=== PATIENT | male | born 1955 | race Caucasian/White ===

== ENCOUNTER 2016-11-18 22:53 | Emergency (ER) | payer OTHER ==
[~2016-11-18] VITALS: Ht 180.3 cm; Wt 141.6 kg
[2016-11-18 22:57] VITALS: TEMP 37; Ht 180.3 cm; Wt 141.6 kg
[2016-11-18] MEDS ORDERED: DiphenhydrAMINE HCL 50 MG/ML VIAL IM STA (23:21)
[2016-11-18] MEDS ORDERED: RANITIDINE HCL 150 MG TAB PO STA (23:21)
--- NOTE | 2016-11-18 23:25 | EMERGENCY ROOM VISIT NOTE ---
History Report prepared by [place]: Alexis Mello Under the Supervision of: Dr. Radha Heller D.O. First contact with patient: 23:02 Chief Complaint: ALLERGIC REACTION Stated Complaint: TONGUE SWELLING History of Present Illness The patient is a 61 year old male diabetic who presents to the Emergency Room with complaints of persistent tongue swelling that started around 1 and a half hours ago. The patient states that he has tongue swelling around the tip on the left side, and it first started as a burning sensation. He notes that there is no tongue pain or soreness however. Per the patient's , the patient has a history over 10 years ago of tongue peeling. The patient states that his hands would first get itchy, and then his tongue would peel and swell, and he would then pass out. Per the patient's , the patient saw his doctor for the symptoms, and it was thought to be infectious. The patient was put on medication , and the swelling went down, but the patient still gets some itchiness occasionally. The patient's tongue would swell a bit occasionally, but he has not had swelling like this since over 10 years ago. He notes that he gets pain intermittently when the tongue peels, and sometimes he cannot eat anything that is acidic or anything that would irritate his tongue. He adds that he normally gets a burning sensation on his tongue before his tongue peels.The patient's adds that the patient is supposed to see an oral surgeon for the tongue peeling. The patient denies any shortness of breath, itchiness, or abdominal pain. The patient takes Metformin, Glipizide, Atorvastatin, Aspirin, and Benazepril daily. He does take an MU inhibitor. He notes that he did not take Benadryl at home. The patient also denies any new foods or medications. Source of History: patient, spouse/significant other Onset: Around 1 and a half hours ago Position: tongue Quality: other (swelling) Timing: other (persistent) Associated Symptoms: No SOB, No abdominal pain Note: Associated symptoms: Initially started as burning sensation on tongue. Denies itchiness or tongue pain. Review of Systems See HPI for pertinent positives & negatives. A total of 10 systems reviewed and were otherwise negative. Past Medical & Surgical Medical Problems: (1) Diabetes (2) Heart disease (3) HTN (hypertension) Family History Diabetes mellitus Heart disease Hypertension Social History Smoking Status: Former Smoker Alcohol Use: none Marital Status: Housing Status: lives with family Occupation Status: retired Current/Historical Medications Scheduled Amlodipine/Benazepril (Lotrel 5MG/20MG), 1 CAP PO DAILY Aspirin (Aspirin Ec), 81 MG PO DAILY Atorvastatin (Lipitor), 40 MG PO DAILY Glipizide (Glucotrol), 5 MG PO BID Metformin Hcl (Glucophage), 850 MG PO TID Omeprazole (Prilosec), 20 MG PO DAILY Allergies Coded Allergies: No Known Allergies (Unverified , 11/18/16) Physical Exam Vital Signs Date Time Temp Pulse Resp B/P (MAP) Pulse Ox O2 Delivery O2 Flow Rate FiO2 11/19/16 00:29 72 18 147/97 95 Room Air 11/18/16 22:57 37.0 79 20 164/110 93 Room Air Physical Exam HEENT: Head - normocephalic and atraumatic. Pupils are equal, round, and reactive to light. Extraocular eye muscles are intact, and sclera are anicteric. Nose - moist nasal mucosa without discharge. Mouth - moist buccal mucosa. On left tip of the tongue, there is an area of peeling skin with surrounding erythema and edema. Oropharynx is nonerythematous and there is no tonsillar exudate or edema noted. Neck: Supple; no JVD, nuchal rigidity, cervical lymphadenopathy. Heart: Regular rate and rhythm. There is a normal S1 and S2 with no murmurs, clicks, or gallops appreciated. Lungs: Clear to auscultation bilaterally with no wheezes, rales, or rhonchi. Abdomen: Soft, completely nontender, nondistended, with good bowel sounds. There are no palpable pulsatile masses or hepatosplenomegaly. There is no guarding, rigidity, or rebound noted. Extremities: No evidence of cyanosis, clubbing, or edema. There are easily palpable peripheral pulses. Skin: warm and dry with good turgor and no rashes. Medical Decision & Procedures Medications Administered Medications (Trade) Dose Ordered Sig/Gregoria Route Start Time Stop Time Status Last Admin Dose Admin Ranitidine HCl (zANTac TAB) 150 mg NOW STAT PO 11/18/16 23:21 11/18/16 23:22 DC 11/18/16 23:32 150 MG Diphenhydramine HCl (Benadryl Inj) 50 mg NOW STAT IM 11/18/16 23:21 11/18/16 23:22 DC 11/18/16 23:32 50 MG Procedure 232: Ordered Benadryl Inj 50 mg IM, Zantac Tab 150 mg PO. ED Course 231: Past medical records reviewed. The patient was evaluated in room B2. A complete history and physical exam was performed. 232: Ordered Benadryl Inj 50 mg IM, Zantac Tab 150 mg PO. 0011: I reevaluated the patient and he is in the bathroom. 0016: I reevaluated the patient and his tongue is less swollen. I told him to stop the MU inhibitor. The patient verbally expressed understanding and agreement of the treatment plan. The patient will be discharged. He will follow -up with Dr. Fuentes with regards to his blood pressure medications. Medical Decision The patient is a 61 year old male who presents to the ED with tongue swelling. Differential diagnosis includes angioedema, allergic reaction, oral infection. The patient presents to the emergency department with some swelling to his tongue. It seems to be localized to the left side of the anterior aspect of the tongue. The patient does take an MU inhibitor and I was somewhat concerned for angioedema. There are no significant signs of infection. I've asked the patient to follow-up with his PCP for redirection for his antihypertensives. In the meantime, he will stop his combination med-amlodipine /Benzapril. He was told to return to the Er for any worsening symptoms Medication Reconcilliation Current Medication List: was personally reviewed by me Blood Pressure Screening Patient's blood pressure: Elevated blood pressure Blood pressure disposition: Elevated BP felt to be situational Impression Primary Impression: Angio-edema Scribe Attestation The scribe's documentation has been prepared under my direction and personally reviewed by me in its entirety. I confirm that the note above accurately reflects all work, treatment, procedures, and medical decision making performed by me. Departure Information Dispostion Home / Self-Care Referrals Anirudh Fuentes D.O. (PCP) Forms HOME CARE DOCUMENTATION FORM, IMPORTANT VISIT INFORMATION, WORK / SCHOOL INSTRUCTIONS Patient Instructions ED Angioedema, My [facility] Additional Instructions Rest with your head elevated. Stop the BP med - amlodipine/benzapril. Talk to Dr. Fuentes about alternative Problem Qualifiers Primary Impression: Angio-edema Encounter type: initial encounter Qualified Codes: T78.3XXA - Angioneurotic edema, initial encounter
[2016-11-18] MEDS ORDERED: METF-383 PO (23:41)
[2016-11-18] MEDS ORDERED: GLIP5TAB11 PO (23:41)
[2016-11-18] MEDS ORDERED: ATOR-24 PO (23:41)
[2016-11-18] MEDS ORDERED: PRLSR20 PO (23:41)
[2016-11-18] MEDS ORDERED: ASPI81TA28 PO (23:41)
[2016-11-18] MEDS ORDERED: AMLO5CAP2 PO (23:41)
[2016-11-19 00:29] VITALS: BP 147/97; PULSE 72; O2SAT 95
[2016-11-26] MEDS ORDERED: NRV5 PO (13:42)
[2016-11-26] MEDS ORDERED: CRG3125 PO (13:42)
== END 2016-11-19 00:33 | disposition home or self-care (01) ==
LOC: C.EDB 22:57
DX: T78.3XXA Angioneurotic edema, initial encounter (principal); X58.XXXA Exposure to other specified factors, initial encounter; I10 Essential (primary) hypertension; E11.9 Type 2 diabetes mellitus without complications; I51.9 Heart disease, unspecified; Z87.891 Personal history of nicotine dependence; Z79.82 Long term (current) use of aspirin; Z79.84 Long term (current) use of oral hypoglycemic drugs; Z79.899 Other long term (current) drug therapy; Z83.3 Family history of diabetes mellitus; Z82.49 Family history of ischemic heart disease and other diseases of the circulatory system

== ENCOUNTER 2016-11-25 04:17 | Observation (INO) | payer OTHER ==
[2016-11-25] VITALS (7 sets, daily range): BP systolic 139–194; BP diastolic 80–126; PULSE 72–102; TEMP 36.6–36.9; O2SAT 92–94; BMI 43.4
[~2016-11-25] VITALS: Ht 180.3 cm; Wt 136.4 kg
[~2016-11-25 04:17] MED LIST: AMLO5CAP2 PO; ASPI81TA28 PO; ATOR-24 PO; GLIP5TAB11 PO; METF-383 PO; PRLSR20 PO
[2016-11-25 05:08] LABS: BASO % 0.7 %; BASO ABS # 0.05 K/uL (0-0.2); COMPLETE YES; EOS % 7.3 %; HEMATOCRIT 44.3 % (42-52); IG% 0.4 %; LYMPH % 28.9 %; LYMPH ABS # 2.18 K/uL (1.2-3.4); MEAN CELL VOLUME 89.9 fL (80-100); MEAN CORPUSCULAR HEMOGLOBIN 28.2 pg (25-34); MEAN CORPUSCULAR HGB CONC 31.4 g/dl (32-36); MEAN PLATELET VOLUME 9.6 fL (7.4-10.4); MONO % 9.8 %; NEUT % 52.9 %; PLATELET COUNT 288 K/uL (130-400); RED BLOOD COUNT 4.93 M/uL (4.7-6.1); WHITE BLOOD COUNT 7.55 K/uL (4.8-10.8)
[2016-11-25 05:28] LABS: ALT/SGPT 57 U/L (12-78); AST/SGOT 27 U/L (15-37); BLOOD UREA NITROGEN 20 mg/dl (7-18); BUN/CREATININE RATIO 17.8 (10-20); CALCIUM 8.8 mg/dl (8.5-10.1); CARBON DIOXIDE 29 mmol/L (21-32); CHLORIDE 105 mmol/L (98-107); GLUCOSE 136 mg/dl (70-99); POTASSIUM 4.1 mmol/L (3.5-5.1); SODIUM 140 mmol/L (136-145)
[2016-11-25] MEDS ORDERED: NITROGLYCERIN 0.4 MG SL PER TAB CHARGE SL STA (05:29)
[2016-11-25] MEDS ORDERED: ASPIRIN 81 MG CHEW PO STA (05:29)
[2016-11-25 05:33] LABS: ALKALINE PHOSPHATASE 67 U/L (45-117)
[2016-11-25] MEDS ORDERED: LOSA1TAB PO (06:02)
--- NOTE | 2016-11-25 06:37 | DIAGNOSTIC IMAGING REPORT ---
CHEST ONE VIEW PORTABLE CLINICAL HISTORY: CHEST PAIN dyspnea COMPARISON STUDY: No previous studies for comparison. FINDINGS: The bones soft tissues and hemidiaphragms are normal. The cardiomediastinal silhouette is normal. The lungs are clear. The pulmonary vasculature is normal. IMPRESSION: Negative chest. The above report was generated using voice recognition software. It may contain grammatical, syntax or spelling errors. Electronically signed by: Marcin Rodriguez M.D. 11/25/2016 6:36 AM Dictated Date/Time: 11/25/2016 6:35 AM
--- NOTE | 2016-11-25 06:44 | EMERGENCY ROOM VISIT NOTE ---
ED Visit Note First contact with patient: 04:34 I saw this patient in conjunction with Destiny Slaughter PA-C. I agree with her decision making and treatment plan.
--- NOTE | 2016-11-25 06:46 | EMERGENCY ROOM VISIT NOTE ---
History First contact with patient: 04:34 Chief Complaint: CARDIAC ASSESSMENT Stated Complaint: HIGH BLOOD PRESSURE,CHEST TIGHTNESS,SOB Nursing Triage Summary: Chest tightness and SOB that began at 0300. Patient denies nausea, vomiting or other symptoms at this time. Patient checked BP at home and it was elevated, recently changed BP medication to Cozaar. History of Present Illness The patient is a 61 year old male who presents to the Emergency Room with complaints of chest tightness, shortness of breath and high blood pressure for the past several hours. Patient states he woke up at 3 AM with chest tightness. His blood pressures been high. He was replaced was blood pressure meds secondary to angioedema. He's had 7 stents placed. He follows with Dr. Murray. He describes chest pain as tightness, ranging in severity 3 out of 10. Nothing makes it better or worse. He states his headache stress test and echo recently that he thinks is normal. Last stent was placed in 2002. Patient denies recent travel, leg pain or swelling, abdominal pain, nausea, vomiting, diarrhea, diaphoresis, radiating pain. Review of Systems See HPI for pertinent positives & negatives. A total of 10 systems reviewed and were otherwise negative. Past Medical/Surgical History Medical Problems: (1) Diabetes (2) Heart disease (3) HTN (hypertension) Family History Diabetes mellitus Heart disease Hypertension Social History Smoking Status: Never Smoker Alcohol Use: none Marital Status: Housing Status: lives with family Occupation Status: retired Current/Historical Medications Scheduled Aspirin (Aspirin Ec), 81 MG PO DAILY Atorvastatin (Lipitor), 40 MG PO DAILY Glipizide (Glucotrol), 5 MG PO BID Losartan Potassium (Cozaar), 25 MG PO DAILY Metformin Hcl (Glucophage), 850 MG PO TID Omeprazole (Prilosec), 20 MG PO DAILY Physical Exam Vital Signs Date Time Temp Pulse Resp B/P (MAP) Pulse Ox O2 Delivery O2 Flow Rate FiO2 11/25/16 06:00 92 21 176/116 93 Room Air 11/25/16 05:13 68 11/25/16 04:51 94 Room Air 11/25/16 04:47 94 Room Air 11/25/16 04:24 36.8 74 20 186/109 93 Room Air Physical Exam VITALS: Vitals are noted on the nurse's note and reviewed by myself. Vital signs hypertensive GENERAL: Pleasant male, in no acute distress, nondiaphoretic, well-developed well-nourished. SKIN: The skin was without rashes, erythema, edema, or bruising. There is no tenting of the skin. Capillary reflex less than 2 seconds. HEAD: Normocephalic atraumatic. EARS: External auditory canals clear, tympanic membranes pearly bradley without erythema or effusion bilaterally. EYES: Pupils equal round and reactive to light and accommodation. Conjunctivae without injection, sclerae without icterus. Extraocular movements intact. NOSE: Patent, turbinates without inflammation or discharge. MOUTH: Mucous membranes moist. . Pharynx without erythema or exudate. Uvula midline. Airway patent. Tongue does not deviate. NECK: Supple without nuchal rigidity. No lymphadenopathy. No thyromegaly. Cervical spine is nontender. No JVD. HEART: Regular rate and rhythm chest nontender to palpation LUNGS: Clear to auscultation bilaterally without wheezes, rales or rhonchi. No dullness to percussion. No retractions or accessory muscle use. ABDOMEN: Positive bowel sounds x 4. Normal tympanic percussion. Soft, nontender, without masses or organomegaly. Poe sign negative. No guarding or rebound tenderness. MUSCULOSKELETAL: No muscle atrophy, erythema, or edema noted. NEURO: Patient was alert and oriented to person place and time. Normal sensation to light and sharp touch. No focal neurological deficits. Medical Decision & Procedures Laboratory Results 11/25/16 04:43 Red Blood Count 4.93, Mean Corpuscular Volume 89.9, Mean Corpuscular Hemoglobin 28.2, Mean Corpuscular Hemoglobin Concent 31.4, Mean Platelet Volume 9.6, Neutrophils (%) (Auto) 52.9, Lymphocytes (%) (Auto) 28.9, Monocytes (%) (Auto) 9.8, Eosinophils (%) (Auto) 7.3, Basophils (%) (Auto) 0.7, Neutrophils # (Auto) 4.00, Lymphocytes # (Auto) 2.18, Monocytes # (Auto) 0.74, Eosinophils # (Auto) 0.55, Basophils # (Auto) 0.05 11/25/16 04:43 Test 11/25/16 04:43 White Blood Count 7.55 K/uL (4.8-10.8) Red Blood Count 4.93 M/uL (4.7-6.1) Hemoglobin 13.9 g/dL (14.0-18.0) Hematocrit 44.3 % (42-52) Mean Corpuscular Volume 89.9 fL (80-100) Mean Corpuscular Hemoglobin 28.2 pg (25-34) Mean Corpuscular Hemoglobin Concent 31.4 g/dl (32-36) Platelet Count 288 K/uL (130-400) Mean Platelet Volume 9.6 fL (7.4-10.4) Neutrophils (%) (Auto) 52.9 % Lymphocytes (%) (Auto) 28.9 % Monocytes (%) (Auto) 9.8 % Eosinophils (%) (Auto) 7.3 % Basophils (%) (Auto) 0.7 % Neutrophils # (Auto) 4.00 K/uL (1.4-6.5) Lymphocytes # (Auto) 2.18 K/uL (1.2-3.4) Monocytes # (Auto) 0.74 K/uL (0.11-0.59) Eosinophils # (Auto) 0.55 K/uL (0-0.5) Basophils # (Auto) 0.05 K/uL (0-0.2) RDW Standard Deviation 45.4 fL (36.4-46.3) RDW Coefficient of Variation 13.9 % (11.5-14.5) Immature Granulocyte % (Auto) 0.4 % Immature Granulocyte # (Auto) 0.03 K/uL (0.00-0.02) D-Dimer 400 ug/L FEU (0-500) Anion Gap 6.0 mmol/L (3-11) Est Creatinine Clear Calc Drug Dose 102.6 ml/min Estimated GFR () 84.1 Estimated GFR (Non- 72.6 BUN/Creatinine Ratio 17.8 (10-20) Calcium Level 8.8 mg/dl (8.5-10.1) Total Bilirubin 0.3 mg/dl (0.2-1) Direct Bilirubin < 0.1 mg/dl (0-0.2) Aspartate Amino Transf (AST/SGOT) 27 U/L (15-37) Alanine Aminotransferase (ALT/SGPT) 57 U/L (12-78) Alkaline Phosphatase 67 U/L (45-117) Troponin I < 0.015 ng/ml (0-0.045) Pro-B-Type Natriuretic Peptide 32 pg/ml (0-900) Total Protein 7.5 gm/dl (6.4-8.2) Albumin 3.5 gm/dl (3.4-5.0) Lipase 99 U/L (73-393) Medications Administered Medications (Trade) Dose Ordered Sig/Gregoria Route Start Time Stop Time Status Last Admin Dose Admin Aspirin (Aspirin Chew) 324 mg NOW STAT PO 11/25/16 05:29 11/25/16 05:32 DC 11/25/16 05:29 324 MG ED Course Prior records/ancillary studies reviewed. Triage Nursing notes reviewed. Additional history obtained from family. The patient's history was concerning for chest pain, dyspnea and high blood pressure. Differential diagnosis: Etiologies such as cardiac ischemia, aortic dissection, pulmonary embolism, pneumonia, pneumothorax, musculoskeletal, infections, pericarditis, myocarditis , esophageal rupture, gastrointestinal, as well as others were entertained. Physical examination: As above. ER treatment provided: Patient was observed On reassessment the patient felt better. Diagnostic interpretation by me: The electrocardiogram was negative for pathologic change. Normal sinus, normal intervals, no acute ST-T wave changes, rate of 71. Impression normal sinus rhythm interpreted by myself The labs revealed negative troponin, repeat troponin will be at 9 AM Stable H&H, hyperglycemia without DKA Imaging studies: Chest x-ray with no acute consolidation, pneumothorax or free air per my interpretation Exam and history seem consistent with chest pain with multiple risk factors. Patient adamantly refuses admission. He understands the risks involved such as heart attack or further heart damage. 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 Patient at least was agreeable to repeat troponin. Patient had a normal EKG. patient had Elevated blood pressure. By the evaluation outlined above emergent etiologies such as aortic dissection, pulmonary embolism, pneumonia, pneumothorax, infections, pericarditis, myocarditis, gastrointestinal, as well as others were deemed relatively unlikely. The pt informed about the findings as listed above. All questions were answered and pleased with the treatment. Case reviewed with my attending Case is signed out to Braxton Koehler PA-C pending repeat troponin and reevaluation in stable condition. Medical Decision As above Blood Pressure Screening Patient's blood pressure: Elevated blood pressure Impression Primary Impression: Precordial chest pain Additional Impression: Dyspnea Departure Information Dispostion Home / Self-Care Condition FAIR Referrals Anirudh Fuentes D.O. (PCP) Patient Instructions [facility] Problem Qualifiers
--- NOTE | 2016-11-25 06:50 | EMERGENCY ROOM VISIT NOTE ---
ED Visit Note First contact with patient: 07:13 Patient case signed out to me by Destiny Slaughter PA-C at time of change pending an 0900 repeat troponin. Please refer to history from previous note. Essentially, the patient was at home when he developed around 3am and some chest discomfort. He was found to be hypertensive. Troponin was performed, and 6 hour repeat was to be done at 9 AM. Initially he was declining admission, however after talking with him about his persistent high blood pressure, he agreed to stay. I discussed this with my attending physician, as well as cardiology, Dr. Gomez. He recommended IV medications of which were provided the patient to include hydralazine 10 mg, as well as 5 mg of amlodipine by mouth. The patient also took his losartan chcf through his stay.. The repeat was negative. I did consult [facility] admission team for further evaluation and management. Please refer to further documentation regarding the patient's stay.
[2016-11-25] MEDS ORDERED: AMLODIPINE BESYLATE 5 MG TAB PO STA (10:15)
[2016-11-25] MEDS ORDERED: HydrALAZINE HCL 20 MG/ML VIAL IV. STA (10:15)
[2016-11-25] MEDS ORDERED: DEXTROSE 50% 50 ML SYR IV PRN (11:45)
[2016-11-25] MEDS ORDERED: GLUCOSE 10 TABS/TUBE PO PRN (11:45)
[2016-11-25] MEDS ORDERED: ACETAMINOPHEN 325 MG TAB PO PRN (11:45)
[2016-11-25] MEDS ORDERED: GLUCAGON FOR INJ 1 MG VIAL SQ PRN (11:45)
[2016-11-25] MEDS ORDERED: ONDANSETRON INJ 2 MG/ML 2 ML VIAL IV PRN (11:45)
[2016-11-25] MEDS ORDERED: GLUCOSE 40% GEL 15 GM TUBE PO PRN (11:45)
[2016-11-25] MEDS ORDERED: NITROGLYCERIN 0.4 MG SL PER TAB CHARGE SL PRN (11:45)
[2016-11-25] MEDS ORDERED: NITROGLYCERIN OINT 2% 1GM PACKET EXT PRN (12:30)
[2016-11-25] MEDS ORDERED: IV FLUIDS COMPLETED PRN (12:30)
--- NOTE | 2016-11-25 13:12 | History and Physical ---
History & Physical Date & Time of Service: Nov 25, 2016 at 12:20 Chief Complaint: High Blood Pressure,Chest Tightness,Sob Primary Care Physician: Anirudh Fuentes D.O. History of Present Illness This is a 61yo male with a PMH of HTN, CAD (s/p multiple stents), DM II, HLD who presents with chest tightness and elevated BP since early this morning. Patient went to bed in his normal state of health and woke up at 3am feeling anxious with associated chest tightness by his sternal notch. No radiation down arms or to jaw. No alleviating or exacerbating factors. Took his BP at home and noticed it was elevated. Chest tightness continued until 4am when he made the decision to come to the ER. Was seen in the ER last week for angioedema, at which point patient's lisinopril was stopped. Has a significant history of CAD, having had 7 stents placed in the past. The last stent placed was in 2002. Denies experiencing any significant episodes of CP since then. Stress echo in August 2016 was negative for inducible ischemia. Follows with LAUREN Murray. Of note, has been under an increased amount of stress lately due to caring for a sick family member. Currently denies any headache, lightheadedness, visual changes, CP, SOB, nausea, vomiting, abd pain, calf pain or LE swelling. Past Medical/Surgical History Medical Problems: (1) Diabetes mellitus, type II Status: Chronic (2) Fatty infiltration of liver Status: Chronic (3) GERD (gastroesophageal reflux disease) Status: Chronic (4) Heart disease Status: Resolved (5) HLD (hyperlipidemia) Status: Chronic (6) HTN (hypertension) Status: Chronic (7) Obesity, morbid, BMI 40.0-49.9 Status: Chronic Social History Problems: (1) Diabetes Status: Chronic Family History Diabetes mellitus Heart disease Hypertension Social History Smoking Status: Former Smoker Alcohol Use: occasionally Marital Status: Occupational Status: retired Allergies Coded Allergies: No Known Allergies (Unverified , 11/18/16) Home Medications Scheduled Aspirin (Aspirin Ec), 81 MG PO DAILY Atorvastatin (Lipitor), 40 MG PO DAILY Glipizide (Glucotrol), 5 MG PO BID Losartan Potassium (Cozaar), 25 MG PO DAILY Metformin Hcl (Glucophage), 850 MG PO TID Omeprazole (Prilosec), 20 MG PO DAILY Review of Systems Ten systems reviewed and negative except as noted in the HPI. Physical Exam Vital Signs Date Time Temp Pulse Resp B/P (MAP) Pulse Ox O2 Delivery O2 Flow Rate FiO2 11/25/16 12:13 36.9 97 18 161/132 94 Room Air 11/25/16 11:55 94 Room Air 11/25/16 11:02 90 18 190/140 94 Room Air 11/25/16 10:36 76 162/112 11/25/16 10:14 85 20 202/125 11/25/16 09:30 76 11/25/16 09:25 86 182/125 93 Room Air 11/25/16 07:32 80 20 168/127 94 Room Air 11/25/16 06:00 92 21 176/116 93 Room Air 11/25/16 05:13 68 11/25/16 04:51 94 Room Air 11/25/16 04:47 94 Room Air 11/25/16 04:24 36.8 74 20 186/109 93 Room Air General Appearance: + mild distress, + obese Head: normocephalic Eyes: normal inspection, PERRL, sclerae normal ENT: hearing grossly normal Neck: supple, no adenopathy, thyroid normal, no JVD, trachea midline Respiratory/Chest: chest non-tender, lungs clear, normal breath sounds, no respiratory distress, no accessory muscle use Cardiovascular: regular rate, rhythm, no murmur, normal peripheral pulses Abdomen/GI: normal bowel sounds, non tender, soft (protuberant ), no organomegaly Back: normal inspection Extremities/Musculoskelatal: normal inspection, no calf tenderness, normal capillary refill, + swelling (1+ pitting edema bilaterally to knee), + pertinent finding (Presence of a healing 2cm wound on R anterior munguia ) Neurologic/Psych: no motor/sensory deficits, alert, normal mood/affect, oriented x 3 Skin: normal color, warm/dry, no rash Diagnostics Laboratory Results Results Past 24 Hours Test 11/25/16 04:43 11/25/16 09:22 11/25/16 11:50 Range/Units White Blood Count 7.55 4.8-10.8 K/uL Red Blood Count 4.93 4.7-6.1 M/uL Hemoglobin 13.9 14.0-18.0 g/dL Hematocrit 44.3 42-52 % Mean Corpuscular Volume 89.9 80-100 fL Mean Corpuscular Hemoglobin 28.2 25-34 pg Mean Corpuscular Hemoglobin Concent 31.4 32-36 g/dl Platelet Count 288 130-400 K/uL Mean Platelet Volume 9.6 7.4-10.4 fL Neutrophils (%) (Auto) 52.9 % Lymphocytes (%) (Auto) 28.9 % Monocytes (%) (Auto) 9.8 % Eosinophils (%) (Auto) 7.3 % Basophils (%) (Auto) 0.7 % Neutrophils # (Auto) 4.00 1.4-6.5 K/uL Lymphocytes # (Auto) 2.18 1.2-3.4 K/uL Monocytes # (Auto) 0.74 0.11-0.59 K/uL Eosinophils # (Auto) 0.55 0-0.5 K/uL Basophils # (Auto) 0.05 0-0.2 K/uL RDW Standard Deviation 45.4 36.4-46.3 fL RDW Coefficient of Variation 13.9 11.5-14.5 % Immature Granulocyte % (Auto) 0.4 % Immature Granulocyte # (Auto) 0.03 0.00-0.02 K/uL D-Dimer 400 0-500 ug/L FEU Sodium Level 140 136-145 mmol/L Potassium Level 4.1 3.5-5.1 mmol/L Chloride Level 105 98-107 mmol/L Carbon Dioxide Level 29 21-32 mmol/L Anion Gap 6.0 3-11 mmol/L Blood Urea Nitrogen 20 7-18 mg/dl Creatinine 1.10 0.60-1.40 mg/dl Est Creatinine Clear Calc Drug Dose 102.6 ml/min Estimated GFR () 84.1 Estimated GFR (Non- 72.6 BUN/Creatinine Ratio 17.8 10-20 Random Glucose 136 70-99 mg/dl Calcium Level 8.8 8.5-10.1 mg/dl Total Bilirubin 0.3 0.2-1 mg/dl Direct Bilirubin < 0.1 0-0.2 mg/dl Aspartate Amino Transf (AST/SGOT) 27 15-37 U/L Alanine Aminotransferase (ALT/SGPT) 57 12-78 U/L Alkaline Phosphatase 67 45-117 U/L Troponin I < 0.015 0-0.045 ng/ml Pro-B-Type Natriuretic Peptide 32 0-900 pg/ml Total Protein 7.5 6.4-8.2 gm/dl Albumin 3.5 3.4-5.0 gm/dl Lipase 99 73-393 U/L Bedside Troponin I < 0.030 0-0.045 ng/ml Creatine Kinase MB Ratio 0-3.0 CXR normal Normal EKG Impression Assessment and Plan This is a 61yo male with a PMH of HTN, CAD (s/p multiple stents), DM II, HLD who presents with chest tightness and elevated BP since early this morning. Hypertensive urgency: improving -likely secondary to Anxiety -BP elevated to 202/125 while in ER -No evidence of end organ damage -Given hydralazine, amlodipine but still elevated to SBP of 190 -Added 0.5" nitro paste Q6H PRN for SBP >160 -Monitor on tele Chest pressure: -Denies alma CP, endorses pressure -R/o ACS; risk factors include DM II, HTN, HLD, obesity -Anxiety also a likely contributor -Given aspirin in ER -Initial troponin negative ,will cycle Lopez -EKG and CXR normal -Recent stress echo in August 2016 without inducible ischemia -LV EF of 55-59% DM II: -Hgb a1c of 7.1 on 07/21 -Hgb a1c ordered -Hold home meds -SSI while in-patient -BG checks AC HS CAD (s/p multiple stents): -Denies alma chest pain, endorses pressure -S/p 7 stents. Last cardiac cath in 2002 -Continue statin, baby aspirin -Cardiology HLD: -Continue statin DVT Ppx: Lovenox Code status: FULL PCP: Alfredo Dispo: Plan to return home once medically stable Attending Addendum:: The patient was seen and examined in ER Admitted with ,anxiety,chest pressure and very high Blood pressure Denies any chest pain during my exam O/E Hemodynamically stable Chest-clear Heart-regular Abdomen-benign Extremities-negative Labs and Imaging studies were reviewed Agree with the Assessment and plan DR Marion Narayan Level of Care Telemetry Advanced Directives Existing Living Will: No Existing Power of Food General Manager: No Resuscitation Status FULL RESUSCITATION VTE Prophylaxis VTE Risk Assessment Done? Y/N: Yes Risk Level: Moderate Given or contraindicated: Enoxaparin (Lovenox)SQ Social Service Consult None Apply
[2016-11-25] MEDS ORDERED: INFLUENZA ADMINISTRATION CHARGE ONE (14:00)
[2016-11-25] MEDS ORDERED: INFLUENZA VIRUS QUAD VACCINE 0.5 ML SYR IM. ONE (14:00)
[2016-11-25 14:20] LABS: HEMATOCRIT 45.4 % (42-52); MEAN CORPUSCULAR HEMOGLOBIN 29.4 pg (25-34); MEAN PLATELET VOLUME 9.7 fL (7.4-10.4); PLATELET COUNT 319 K/uL (130-400); WHITE BLOOD COUNT 7.98 K/uL (4.8-10.8)
[2016-11-25 14:41] LABS: PROTHROMBIN TIME (PATIENT) 10.4 SECONDS (9.0-12.0)
[2016-11-25 14:49] LABS: CKMB/CK RATIO 1.2 (0-3.0)
[2016-11-25] MEDS ORDERED: AMLODIPINE BESYLATE 5 MG TAB PO ONE (16:00)
[2016-11-25] MEDS ORDERED: HydrALAZINE HCL 20 MG/ML VIAL IV. PRN (16:00)
[2016-11-25] MEDS: INSULIN ASPART 100 UNITS/ML 3 ML PEN SC SCH ×2 (17:23→21:09)
--- NOTE | 2016-11-25 17:48 | Cardiology Consultation ---
Cardiology Consultation Date of Consultation: Nov 25, 2016 History of Present Illness Gonzalo Soni is a 61 year old male seen in cardiology consultation per the request of Lorrie Yan PA-C and Dr Narayan for the evaluation of elevated blood pressure and chest discomfort. The patient's primary care provider is Dr. Anirudh Fuentes. The patient follows with Marcin Murray for cardiology practice with most recent outpatient cardiology clinic visit in April 2016. The patient has a long-standing history of hypertension that is been well- controlled on Lotrel (amlodipine 5 mg/benazepril 20 mg) daily. At that time his cardiology visit in April 2016 his blood pressure was recorded as being 126/84 and his heart rate was recorded as being 68 bpm. In the past, the addition of Toprol had been recommended a cardiology visit, but the patient declined stating that he felt well during looking back at his long-standing blood pressure trends as an outpatient, he has had well-controlled blood pressures. A week ago however he had developed swelling of his tongue. He was seen in the emergency department, and was felt that he was having an angioedema reaction to the benazepril. His Lotrel was therefore discontinued and he followed up with his primary care provider and was transitioned to losartan 25 mg daily. He started this medication earlier this week. Last evening however he woke up at 3 AM and he felt anxious feeling. He took his blood pressure on his home blood pressure machine and it was elevated although he does not remember the readings. He then felt mild chest heaviness. Things did not improve so therefore he presented to the emergency department His initial blood pressure performed at 11/25/16 at 4:24 AM was 196/109. Thus far he has received amlodipine 5 mg, hydralazine 10 mg IV 1, topical nitroglycerin and his blood pressure remains elevated, with recent reading at 2: 31 PM of 176/110, and his blood pressure was then repeated at the time of my exam of him at just after 5:15 PM and it was still elevated at 196 /100 millimeters Hg. The patient is feeling improved, with no chest discomfort. He has a vague headache, but he is not certain if that is due to his blood pressure were due to the topical nitroglycerin. He is accompanied by his spouse the bedside. Troponin has been negative 3 at 4:43 AM, 9:22 AM, and 1354. EKG performed on 11/25/16 at 4:34 AM revealed sinus rhythm at 71 bpm with no significant ST changes. A single EKG in his chart at present. Past Medical/Surgical History Problem List: Medical Problems: (1) Diabetes mellitus, type II (2) Fatty infiltration of liver (3) GERD (gastroesophageal reflux disease) (4) Heart disease (5) HLD (hyperlipidemia) (6) HTN (hypertension) (7) Obesity, morbid, BMI 40.0-49.9 Social History Problems: (1) Diabetes History Past Medical History: 1. Coronary heart disease, this was initially diagnosed in 2002 at which time he had exertional chest pain with abnormal stress testing. Cardiac catheterization on 04/27/2002 revealed a high-grade stenosis of the proximal LAD and proximal left circumflex treated with bare-metal stent. He had stenting of the second diagonal branch on 05/02/2002, and PCI of the right coronary artery in [place] in March 2009. The time his 2010 cardiac catheterization [place] he had patent LAD and circumflex stents. 2. Hypertension 3. Type 2 diabetes mellitus 4. 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 Obesity 6. Dyslipidemia 7. Fatty liver infiltration Past Surgical History: Cardiac catheterizations as noted above Social History: Prior smoking having quit in 1985 having smoked one pack per day for 20 years. He is a retired greenhouse laborer. He is , and his spouse accompanies him at the bedside Family History: He states his mother passed with age 55 of a myocardial infarction. Father in his 50s of myocardial infarction. He has a sister with coronary heart disease, heart stents, and a stroke. His a brother with history of coronary artery bypass grafting Review Of Systems See above for pertinent positives & negatives. A total of 10 systems reviewed and were otherwise negative. Allergies Coded Allergies: No Known Allergies (Unverified , 11/18/16) Medications Reported Home Medications Medications Dose Route/Sig Max Daily Dose Days Date Category Cozaar (Losartan Potassium) 25 Mg Tab 25 Mg PO DAILY 11/25/16 Reported Glucotrol (Glipizide) 5 Mg Tab 5 Mg PO BID 11/18/16 Reported Lipitor (Atorvastatin Calcium) 40 Mg Tab 40 Mg PO DAILY 11/18/16 Reported Prilosec (Omeprazole) 20 Mg Capcr 20 Mg PO DAILY 11/18/16 Reported Glucophage (Metformin Hcl) 850 Mg Tab 850 Mg PO TID 11/18/16 Reported Aspirin Ec (Aspirin) 81 Mg Tab 81 Mg PO DAILY 11/18/16 Reported Physical Exam Vital Signs (Last 8hrs): Last 8 Hrs Date Time Temp Pulse Resp B/P (MAP) Pulse Ox O2 Delivery O2 Flow Rate FiO2 11/25/16 17:24 102 164/116 (132) 194/126 (148) 11/25/16 16:00 Room Air 11/25/16 14:31 36.7 97 20 176/110 (132) 92 Room Air 167/108 (127) 11/25/16 12:38 36.6 99 20 180/125 (143) 93 Room Air 11/25/16 12:13 36.9 97 18 161/132 94 Room Air 11/25/16 12:00 Room Air 11/25/16 11:55 94 Room Air 11/25/16 11:02 90 18 190/140 94 Room Air 11/25/16 10:36 76 162/112 11/25/16 10:14 85 20 202/125 General Appearance: Alert and Oriented x3. NAD. Head: Normocephalic Atraumatic. Eyes: PERRLA, EOMI, conjunctiva and sclera clear Neck: Supple. No carotid bruits noted. No JVD. No HJD. Respiratory: Breath sounds clear to auscultation bilaterally. No w/r/r. Cardiovascular: Reg rate and rhythm. S1 and S2 noted. No murmurs, rubs, gallops. PMI non displace. Abdomen: Normal bowel sounds, soft nontender. no abdominal bruits. Extremities: No edema, no clubbing or cyanosis. distal pulses 2/4 bilaterally. Neuro: No focal deficits. Psychiatric: Normal affect. Data Last Resulted 11/25/16 13:54 Last Resulted 11/25/16 04:43 Past 24 Hours Test 11/25/16 04:43 11/25/16 13:54 11/25/16 17:52 Range/Units Troponin I < 0.015 < 0.015 0-0.045 ng/ml Creatine Kinase MB 1.5 0.5-3.6 ng/ml Creatine Kinase MB Ratio 1.2 0-3.0 Prothromb Time International Ratio 1.0 0.9-1.1 Prothrombin Time 10.4 9.0-12.0 SECONDS Total Creatine Kinase 127 39-308 U/L EKG as outlined above. Telemetry reveals stable sinus rhythm and sinus tachycardia is noted with when he walks in the room. Assessment & Plan Impression: 61-year-old male 1. Hypertensive urgency with associated chest discomfort 2. History of coronary stents in the LAD, circumflex, and RCA territories most recently to the RCA in 2009 in [place] 3. Nonischemic debridement stress echocardiogram August, with ejection fraction of 55-59% at that time, trace tricuspid regurgitation, normal calculated pulmonary artery systolic pressure Discussion/recommendations: Per review of his outpatient chart, the patient has had well-controlled blood pressure for years on Lotrel 07/24. He recently was evaluated for an episode suggesting angioedema a week ago and has been off the Lotrel. This was replaced with losartan, and he had just started taking this medication. He now presents with symptoms of hypertension and elevated blood pressures. His blood pressures have remained elevated despite the medications as noted above. I have requested a dose of IV labetalol, 20 mg, and plan to also start him on carvedilol, 3.125 mg 1 now, with next dose tomorrow morning along with amlodipine. His baseline heart rate is in the 60-70 beat per minute range, so I favor carvedilol as a beta shyam for him because it has more of a blood pressure affect and a heart rate affect, given his history of CAD, beta hsyam is warranted. I've requested a repeat resting echocardiogram to be performed tomorrow. Given concerns of potential for angioedema with losartan since he had it apparently with benazepril, losartan has been placed on hold for now we are favoring treatment with carvedilol and amlodipine. Repeat EKG is planned for tomorrow. Orlando Gomez DO, FACC, FACOI Associate [facility] [place] [place] [facility]
[2016-11-25] MEDS ORDERED: CARVEDILOL 3.125 MG TAB PO ONE (18:00)
[2016-11-25] MEDS ORDERED: LABETALOL HCL IV 5 MG/ML 20ML IV ONE (18:00)
[2016-11-25 18:33] LABS: CKMB/CK RATIO 0.9 (0-3.0)
[2016-11-25] MEDS ORDERED: ENOXAPARIN 40 MG/0.4 ML SYR SC SCH (21:00)
[2016-11-26 04:00] VITALS: BP 139/71; PULSE 67; TEMP 36.7; O2SAT 93
[2016-11-26 05:48] LABS: PROTHROMBIN TIME (PATIENT) 10.7 SECONDS (9.0-12.0)
[2016-11-26 06:10] LABS: BUN/CREATININE RATIO 15.2 (10-20); CREATININE 1.1 mg/dl (0.60-1.40); POTASSIUM 3.7 mmol/L (3.5-5.1)
[2016-11-26 06:11] LABS: ESTIMATED AVERAGE GLUCOSE 171 mg/dl; HA1C FLAG Normal (Normal)
[2016-11-26 07:58] VITALS: BP 151/98; PULSE 67; TEMP 36.7; O2SAT 93
[2016-11-26 08:00] VITALS: O2SAT 93
[2016-11-26] MEDS: ATORVASTATIN 40 MG TAB PO SCH ×2 (08:30→08:40)
[2016-11-26] MEDS: INSULIN ASPART 100 UNITS/ML 3 ML PEN SC SCH ×2 (08:33→12:39)
[2016-11-26] MEDS ORDERED: NURSING VERBAL MED ORDER ONE (08:45)
[2016-11-26] MEDS ORDERED: CARVEDILOL 3.125 MG TAB PO SCH (09:00)
[2016-11-26] MEDS ORDERED: PANTOprazole SOD 40 MG TAB PO SCH (09:00)
[2016-11-26] MEDS ORDERED: ASPIRIN 81 MG ECTAB PO SCH (09:00)
[2016-11-26] MEDS ORDERED: AMLODIPINE BESYLATE 5 MG TAB PO SCH (09:00)
--- NOTE | 2016-11-26 09:11 | Cardiology Follow-Up ---
Subjective General Date of Service: Nov 26, 2016. Chief Complaint: HTN Pt evaluation today including: conversation w/ patient, physical exam, chart review, lab review, review of studies, review of inpatient medication list History of Present Illness Patient seen and examined. Denies chest pain, palpitations, or dyspnea. No headaches. No visual changes. No lightheadedness, dizziness, near syncope, or syncope No fevers or chills. Telemetry: Currently since at 78 bpm. Sinus, sinus tachycardia observed. Lowest heart rate observed overnight was 57 bpm. Occasional atrial ectopy. No atrial fibrillation. No significant ventricular arrhythmias. EKG this morning reveals normal sinus rhythm at 72 bpm with sinus arrhythmia. TTE: Pending interpretation. Allergies Coded Allergies: No Known Allergies (Unverified , 11/18/16) Social History Smoking Status: Former Smoker Hx Tobacco Use In Past Year?: No Hx Alcohol Use - Type And Amou: No Hx Substance Use - Type And Am: No Problem List Medical Problems: (1) Angio-edema Status: Acute (2) Chest pain Status: Acute Social History Problems: (1) Diabetes Status: Chronic Physical Exam Vital Signs Last Vital Signs Documentation Date Time Temp Pulse Resp B/P (MAP) Pulse Ox O2 Delivery O2 Flow Rate FiO2 11/26/16 07:58 36.7 67 16 151/98 (115) 93 Room Air Physical Exam Constitutional: General Apperance: overweight Level of Distress: NAD Psychiatric: Mental Status: active & alert Orientation: to time, to place, to person Memory: recent memory normal, remote memory normal Head: normocephalic, atraumatic Eyes: Pupils: PERRLA Neck: pertinent finding (Normal JVP) Lungs: Auscultation: no wheezing, no rales/crackles, no rhonchi, deminished air movement, decreased breath sounds Cardiovascular: Heart Auscultation: RRR (78 bpm), no murmurs, no rubs, no gallops Peripheral Pulses: Radial Pulse: normal on the left, normal on the right Dorsalis Pedis Pulse: decreased on the left, decreased on the right Abdomen: Bowel Sounds: normal Inspection & Palpation: soft, no masses Liver: non-tender Extremities: no cyanosis, no varicosities, no clubbing, edema (Minimal) Neurologic: Cranial Nerves: grossly intact Assessment and Plan Assessment and Plan Admission with hypertensive urgency with associated chest discomfort. History of ASCVD status post multiple PCI's, last in 2009 Nonischemic dobutamine stress echocardiogram August 2016 EKG without acute change. Negative cardiac enzymes. Blood pressures improved with resumption and titration of amlodipine as well as the addition of Carvedilol If BP remains elevated above would would consider titration of Carvedilol versus the addition of HCTZ Avoid ACEI/ARB given recent issue with angioedema. Await TTE Increase activity Follow BP's, as above. CARDIOLOGY ATTENDING ADDENDUM: The patient was seen and personally examined. Agree with Marcin Murray PA-C's findings and plans as documented above with additions as noted below. S: Denies chest pain or SAMUEL. Topical nitro discontinued this am.BPs trended toward improvement overnight. BP taken with auto cuff in L upper arm at bedside at the time of my exam, with reading of 144/95 mm Hg which although is still above goal given his Diabetes and CAD , is much better. Exam: CV: reg, no murmurs Ext: no edema Data: Echo performed this am and reviewed by the undersigned: -- Conclusions -- * There is mild concentric left ventricular hypertrophy. * No regional wall motion abnormalities noted. * The LV Ejection Fraction = 60-65%. * The right ventricle is normal in size and function. * There is mild tricuspid regurgitation. * The calculated pulmonary artery systolic pressure is upper limit of normal to midly elevated at 38 mm Hg, assuming a right atrial pressure of 3 mm Hg. * Grade I diastolic dysfunction, (abnormal relaxation pattern). Impression: Admitted with hypertensive urgency Recent episode of tongue swelling, suspected angioedema after years of therapy with Lotrel. Stable CAD, likely had CP due to elevated BP in setting of fixed chronic CAD -negative DSE 08/2016 Plan: Continue amlodipine , now 10 mg, Coreg 3.125 mg daily. I am hesitant to increased meds any more at this point until we see how things trend on current meds for a few days as outpatient. OK to discharge from cardiac perspective, PCP was already following BPs If remains above goal consider increase in coreg or adding HCTZ. Jessica Gomez, Laboratory Results Last 24 Hours Test 11/25/16 09:22 11/25/16 13:54 11/25/16 16:24 11/25/16 17:52 Bedside Troponin I < 0.030 ng/ml White Blood Count 7.98 K/uL Red Blood Count 5.10 M/uL Hemoglobin 15.0 g/dL Hematocrit 45.4 % Mean Corpuscular Volume 89.0 fL Mean Corpuscular Hemoglobin 29.4 pg Mean Corpuscular Hemoglobin Concent 33.0 g/dl RDW Standard Deviation 44.4 fL RDW Coefficient of Variation 13.7 % Platelet Count 319 K/uL Mean Platelet Volume 9.7 fL Prothrombin Time 10.4 SECONDS Prothromb Time International Ratio 1.0 Total Creatine Kinase 127 U/L 135 U/L Creatine Kinase MB 1.5 ng/ml 1.2 ng/ml Creatine Kinase MB Ratio 1.2 0.9 Troponin I < 0.015 ng/ml < 0.015 ng/ml Bedside Glucose 158 mg/dl Test 11/25/16 20:12 11/26/16 05:23 11/26/16 07:48 Bedside Glucose 168 mg/dl 171 mg/dl Prothrombin Time 10.7 SECONDS Prothromb Time International Ratio 1.0 Sodium Level 139 mmol/L Potassium Level 3.7 mmol/L Chloride Level 106 mmol/L Carbon Dioxide Level 29 mmol/L Anion Gap 4.0 mmol/L Blood Urea Nitrogen 17 mg/dl Creatinine 1.10 mg/dl Est Creatinine Clear Calc Drug Dose 102.6 ml/min Estimated GFR () 84.1 Estimated GFR (Non- 72.6 BUN/Creatinine Ratio 15.2 Random Glucose 151 mg/dl Estimated Average Glucose 171 mg/dl Hemoglobin A1c 7.6 % Calcium Level 9.0 mg/dl
--- NOTE | 2016-11-26 11:35 | ECHOCARDIOGRAM REPORT ---
*NOTICE TO RECEIVING [employer] This information is strictly Confidential and protected under [place] law. [place] law prohibits you from making any further disclosure of this information unless further disclosure is expressly permitted by the written consent of the person to whom it pertains or is authorized by law. A general authorization for the release of medical or other information is not sufficient for this purpose. Hospital accepts no responsibility if the information is made available to any other person, INCLUDING THE PATIENT. Interpretation Summary * Name: KAJAL DOWNEY Study Date: 11/26/2016 06:54 AM BP: 139/71 mmHg * Patient Location: [facility]\S\N281\S\2 HR: 67 * : 1955 (M/d/yyyy) Gender: Male Height: 71 in * Age: 61 yrs Ethnicity: [place] Weight: 310 lb * Ordering Physician: Orlando Gomez * Referring Physician: Self, Referred * Performed By: Gerry Lopez RCS * * Reason For Study: HTN * BSA: 2.5 m2 * The study was technically difficult. * -- Conclusions -- * There is mild concentric left ventricular hypertrophy. * No regional wall motion abnormalities noted. * The LV Ejection Fraction = 60-65%. * The right ventricle is normal in size and function. * There is mild tricuspid regurgitation. * The calculated pulmonary artery systolic pressure is upper limit of normal to midly elevated at 38 mm Hg, assuming a right atrial pressure of 3 mm Hg. * Grade I diastolic dysfunction, (abnormal relaxation pattern). Procedure Details * A complete two-dimensional transthoracic echocardiogram was performed (2D, M-mode, Doppler and color flow Doppler). * The study was technically difficult. * The study was technically limited. * There were technical limitations due to patient'sbody habitus * A contrast injection of Definity was performed to improve assessment of LV function. * Contrast was injected into an intravenous site in the right arm. * One vial of Definity ultrasound contrast was diluted in normal saline to a total volume of 10 ml. A total of '3' ml of solution was administered during imaging. * Lot # [id number] of Definity utilized for procedure. * Expiration date . * The attending nurse who injected the contrast agent was Homer Jacobo RN. Left Ventricle * The left ventricle is normal in size. * There is mild concentric left ventricular hypertrophy. * Left ventricular systolic function is normal. * Ejection Fraction = 60-65%. * The left ventricular wall motion is normal. * No regional wall motion abnormalities noted. Right Ventricle * The right ventricle is normal in size and function. Atria * The left atrial size is normal. * Right atrial size is normal. * There is no evidence of atrial septal defect, but resolution does not allow assessment for a patent foramen ovale. Mitral Valve * The mitral valve is normal. * There is no mitral valve stenosis. * Significant mitral regurgitation is absent. Tricuspid Valve * The tricuspid valve is normal. * There is no tricuspid stenosis. * There is mild tricuspid regurgitation. * The calculated pulmonary artery systolic pressure is upper limit of normal to midly elevated at 38 mm Hg, assuming a right atrial pressure of 3 mm Hg. Aortic Valve * The aortic valve is trileaflet. * Aortic stenosis is absent. * There is no significant aortic regurgitation. Pulmonic Valve * The pulmonary valve is not well seen, but the Doppler examination is normal without significant regurgitation or stenosis. Great Vessels * The aortic root and proximal ascending aorta are normal sized. Pericardium/Pleural * There is no pericardial effusion. Great Vessels * Normal inferior vena cava diameter and respiratory variation suggests normal central venous pressure. Left Ventricular Diastolic Function * Grade I diastolic dysfunction, (abnormal relaxation pattern). MMode 2D Measurements and Calculations IVSd 1.1 cm IVSs 1.5 cm LVIDd 4.4 cm LVIDs 2.6 cm LVPWd 1.1 cm LVPWs 1.4 cm IVS/LVPW 1.0 FS 40.2 % EDV(Teich) 87.6 ml ESV(Teich) 25.3 ml EF(Teich) 71.1 % EDV(cubed) 85.1 ml ESV(cubed) 18.2 ml EF(cubed) 78.6 % % IVS thick 33.9 % % LVPW thick 23.5 % LV mass(C)d 170.2 grams LV mass(C)dI 67.0 grams/m\S\2 LV mass(C)s 122.4 grams LV mass(C)sI 48.2 grams/m\S\2 SV(Teich) 62.3 ml SI(Teich) 24.5 ml/m\S\2 SV(cubed) 66.9 ml SI(cubed) 26.3 ml/m\S\2 Ao root diam 3.6 cm Ao root area 10.4 cm\S\2 ACS 1.8 cm LA dimension 4.0 cm asc Aorta Diam 3.2 cm LA/Ao 1.1 EDV(MOD-sp4) 105.9 ml ESV(MOD-sp4) 31.7 ml EF(MOD-sp4) 70.1 % EDV(MOD-sp2) 133.4 ml ESV(MOD-sp2) 66.8 ml EF(MOD-sp2) 49.9 % SV(MOD-sp4) 74.2 ml SI(MOD-sp4) 29.2 ml/m\S\2 SV(MOD-sp2) 66.5 ml SI(MOD-sp2) 26.2 ml/m\S\2 Doppler Measurements and Calculations MV E max aylin 40.5 cm/sec MV A max aylin 73.8 cm/sec MV E/A 0.55 MV P1/2t max aylin 65.8 cm/sec MV P1/2t 68.4 msec MVA(P1/2t) 3.2 cm\S\2 MV dec slope 281.9 cm/sec\S\2 MV dec time 0.31 sec Ao V2 max 125.5 cm/sec Ao max PG 6.3 mmHg Ao max PG (full) 1.3 mmHg LV V1 max PG 5.0 mmHg LV V1 max 111.3 cm/sec PA V2 max 133.4 cm/sec PA max PG 7.1 mmHg TR max aylin 295.1 cm/sec
--- NOTE | 2016-11-26 11:44 | Progress Note ---
Medicine Progress Note Date & Time of Visit: Nov 26, 2016 at 11:36. (Lorrie Yan, P.A.-C.) Subjective Patient seen and examined. States that he feels better today, no chest pressure or anxiety. Discussed medications changes for blood pressure and patient verbalized understanding. Denies any lightheadedness, headache, visual changes, CP, SOB, abd pain, LE swelling. (Lorrie Yan, P.A.-C.) Objective Last 8 Hrs Date Time Temp Pulse Resp B/P (MAP) Pulse Ox O2 Delivery O2 Flow Rate FiO2 11/26/16 08:00 93 Room Air 11/26/16 07:58 36.7 67 16 151/98 (115) 93 Room Air 11/26/16 04:00 Room Air 11/26/16 04:00 36.7 67 20 139/71 (93) 93 Room Air Physical Exam: General Appearance: WD/WN, no apparent distress, obese Head: normocephalic, atraumatic Eyes: normal inspection, PERRL, EOMI ENT: hearing grossly normal, pharynx normal Neck: supple, no JVD, no adenopathy Respiratory/Chest: lungs clear to auscultation. No wheezes, rales or rhonci. No respiratory distress or accessory muscle use Cardiovascular: regular rate, rhythm, no murmur, normal peripheral pulses Abdomen/GI: normal bowel sounds, soft, non-tender to palpation Extremities/Musculoskelatal: normal inspection, no calf tenderness, normal capillary refill, trace pedal edema Neurologic/Psych: alert, normal mood/affect, oriented x 3 Skin: normal color, warm/dry Laboratory Results: Last 24 Hours Test 11/25/16 13:54 11/25/16 16:24 11/25/16 17:52 11/25/16 20:12 White Blood Count 7.98 K/uL Red Blood Count 5.10 M/uL Hemoglobin 15.0 g/dL Hematocrit 45.4 % Mean Corpuscular Volume 89.0 fL Mean Corpuscular Hemoglobin 29.4 pg Mean Corpuscular Hemoglobin Concent 33.0 g/dl RDW Standard Deviation 44.4 fL RDW Coefficient of Variation 13.7 % Platelet Count 319 K/uL Mean Platelet Volume 9.7 fL Prothrombin Time 10.4 SECONDS Prothromb Time International Ratio 1.0 Total Creatine Kinase 127 U/L 135 U/L Creatine Kinase MB 1.5 ng/ml 1.2 ng/ml Creatine Kinase MB Ratio 1.2 0.9 Troponin I < 0.015 ng/ml < 0.015 ng/ml Bedside Glucose 158 mg/dl 168 mg/dl Test 11/26/16 05:23 11/26/16 07:48 Prothrombin Time 10.7 SECONDS Prothromb Time International Ratio 1.0 Sodium Level 139 mmol/L Potassium Level 3.7 mmol/L Chloride Level 106 mmol/L Carbon Dioxide Level 29 mmol/L Anion Gap 4.0 mmol/L Blood Urea Nitrogen 17 mg/dl Creatinine 1.10 mg/dl Est Creatinine Clear Calc Drug Dose 102.6 ml/min Estimated GFR () 84.1 Estimated GFR (Non- 72.6 BUN/Creatinine Ratio 15.2 Random Glucose 151 mg/dl Estimated Average Glucose 171 mg/dl Hemoglobin A1c 7.6 % Calcium Level 9.0 mg/dl Bedside Glucose 171 mg/dl (Lorrie Yan ., P.A.-C.) Assessment & Plan This is a 61yo male with a PMH of HTN, CAD (s/p multiple stents), DM II, HLD who presents with chest tightness and elevated BP since early this morning. Hypertensive urgency: resolved -Likely secondary to anxiety -BP elevated to 202/125 while in ER -No evidence of end organ damage -BP of 151/98 this morning -Per cardio -Continue amlodipine 10mg qAM -Start Coreg 3.125mg BID -Avoid ACEI/ARB given recent issue with angioedema -Echo pending Chest pressure: resolved -Denies alma CP, endorses pressure -R/o ACS; risk factors include DM II, HTN, HLD, obesity -Anxiety also a likely contributor -Given aspirin in ER -Cardiac enzymes negative x 3 -EKG and CXR normal -Recent stress echo in August 2016 without inducible ischemia -LV EF of 55-59%. Repeat echo pending DM II: -Hgb a1c of 7.6 -Hold home meds -SSI while in-patient -BG checks AC HS CAD (s/p multiple stents): -Denies alma chest pain, endorses pressure -S/p 7 stents. Last cardiac cath in 2002 -Continue statin, baby aspirin -Cardiology HLD: -Continue statin DVT Ppx: Lovenox Code status: FULL PCP: Alfredo Dispo: Plan to return home once medically stable Current Inpatient Medications: Current Inpatient Medications Medications (Trade) Dose Ordered Sig/Gregoria Route Start Time Stop Time Status Last Admin Dose Admin Acetaminophen (Tylenol Tab) 650 mg Q4H PRN PO 11/25/16 11:45 12/25/16 11:44 11/26/16 00:24 650 MG Ondansetron HCl (Zofran Inj) 4 mg Q6H PRN IV 11/25/16 11:45 12/25/16 11:44 Nitroglycerin (Nitrostat Tab) 0.4 mg UD PRN SL 11/25/16 11:45 12/25/16 11:44 Insulin Aspart (novoLOG ASPART) SLIDING SCALE If C... ACHS SC 11/25/16 16:30 12/25/16 16:29 11/26/16 08:33 7 UNITS Glucose (Glucose 40% Gel) 15-30 GRAMS 15 GRAMS... UD PRN PO 11/25/16 11:45 12/25/16 11:44 Glucose (Glucose Chew Tab) 4-8 Tablets 4 Tabl... UD PRN PO 11/25/16 11:45 12/25/16 11:44 Dextrose (Dextrose 50% 50ML Syringe) 25-50ML OF 50% DW IV FOR... UD PRN IV 11/25/16 11:45 12/25/16 11:44 Glucagon (Glucagon Inj) 1 mg UD PRN SQ 11/25/16 11:45 12/25/16 11:44 Enoxaparin Sodium (Lovenox Inj) 40 mg Q24H SC 11/25/16 21:00 12/25/16 11:59 Miscellaneous (Iv Fluids Completed) 1 ea PRN PRN N/A 11/25/16 12:30 11/25/17 12:29 Aspirin (Ecotrin Tab) 81 mg DAILY PO 11/26/16 09:00 12/26/16 08:59 11/26/16 08:30 81 MG Pantoprazole Sodium (Protonix Tab) 40 mg DAILY PO 11/26/16 09:00 12/26/16 08:59 11/26/16 08:29 40 MG Hydralazine HCl (HydrALAZINE INJ) 10 mg ONE PRN IV. 11/25/16 16:00 12/25/16 15:59 Amlodipine Besylate (Norvasc Tab) 10 mg QAM PO 11/26/16 09:00 12/26/16 08:59 11/26/16 08:30 10 MG Carvedilol (Coreg Tab) 3.125 mg BID PO 11/26/16 09:00 12/26/16 08:59 11/26/16 08:29 3.125 MG Atorvastatin Calcium (Lipitor Tab) 40 mg DAILY@2100 PO 11/26/16 21:00 12/26/16 08:59 (Lorrie Yan, P.A.-C.) Attending Addendum; The patient was seen and examined He denies any symptoms today and feeling a lot better His blood pressure is improving on current medications O/E:He is not having any distress and hemodynamically stable His Labs and Imaging studies are unremarkable Repeat ECHO::. There is mild concentric left ventricular hypertrophy. * No regional wall motion abnormalities noted. * The LV Ejection Fraction = 60-65%. * The right ventricle is normal in size and function. * There is mild tricuspid regurgitation. * The calculated pulmonary artery systolic pressure is upper limit of normal to midly elevated at 38 mm Hg, assuming a right atrial pressure of 3 mm Hg. * Grade I diastolic dysfunction, (abnormal relaxation pattern). Agree with the assessment and plan. DR Marion Narayan (Danisha Narayan M.D.)
[2016-11-26 11:55] VITALS: BP 144/95; PULSE 70
[2016-11-26 12:01] VITALS: O2SAT 93
[2016-11-26] MEDS ORDERED: NRV5 PO (13:42)
[2016-11-26] MEDS ORDERED: CRG3125 PO (13:42)
--- NOTE | 2016-11-26 13:44 | Discharge Instructions ---
Discharge Instructions Date of Service Nov 26, 2016. Admission Reason for Admission: Chest Pain Discharge Discharge Diagnosis / Problem: Hypertensive Urgency,Chest pain/Pressure Discharge Goals Goal(s): Prevent Disease Progression Activity Recommendations Activity Limitations: resume your previous activity . Instructions / Follow-Up Instructions / Follow-Up DR Fuentes on 12/03/16 at 10:30AM.Pl keep appointmrnt with Cardiology Current Hospital Diet Patient's current hospital diet: Low Sodium Diet (2gm Na), Diabetes Type 2 Diet Discharge Diet Recommended Diet: AHA Diet (Heart Healthy), Low Sodium Diet (2gm Na) Pending Studies Studies pending at discharge: no Laboratory Results Hemoglobin A1c Test 11/26/16 05:23 Range/Units Estimated Average Glucose 171 mg/dl Hemoglobin A1c 7.6 H 4.5-5.6 % Medical Emergencies . Who to Call and When: Medical Emergencies: If at any time you feel your situation is an emergency, please call 911 immediately. . Non-Emergent Contact Non-Emergency issues call your: Primary Care Provider . Past History Medical & Surgical History: (1) Hypertensive urgency (2) Chest pain (3) Diabetes mellitus, type II (4) Obesity, morbid, BMI 40.0-49.9 (5) Fatty infiltration of liver . "Provider Documentation" section prepared by Danisha Narayan. . VTE Core Measure Inpt VTE Proph given/why not?: Enoxaparin (Lovenox)SQ
[2016-11-26 13:48] VITALS: Ht 180.3 cm; Wt 136.4 kg
[2016-11-26 14:22] VITALS: BP 144/95; PULSE 70; TEMP 36.7; O2SAT 93
[2016-11-26] MEDS ORDERED: ATORVASTATIN 40 MG TAB PO SCH (21:00)
--- NOTE | 2016-11-27 09:34 | Discharge Summary ---
Discharge Summary Date of Service Nov 27, 2016. Discharge Summary Admission Date: Nov 25, 2016 at 11:04 Discharge Date: Nov 26, 2016 Discharge Disposition: Home Principal Diagnosis: Hypertensive Urgency,Chest pain/Pressure Secondary Diagnoses/Problems: Please see H&P and Hospital Progress note Consultations: Cardiology Medication Reconciliation New Medications: Amlodipine Besylate (Amlodipine Besylate) 5 Mg Tab 10 MG PO QAM for 30 Days, #60 TAB Carvedilol (Carvedilol) 3.125 Mg Tab 3.125 MG PO BID for 30 Days, #60 TAB Continued Medications: Aspirin (Aspirin Ec) 81 Mg Tab 81 MG PO DAILY Atorvastatin (Lipitor) 40 Mg Tab 40 MG PO DAILY, TAB Glipizide (Glucotrol) 5 Mg Tab 5 MG PO BID, TAB Metformin Hcl (Glucophage) 850 Mg Tab 850 MG PO TID, TAB Omeprazole (Prilosec) 20 Mg Capcr 20 MG PO DAILY, CAP Discontinued Medications: Losartan Potassium (Cozaar) 25 Mg Tab 25 MG PO DAILY, TAB Admission Information HPI (per Admitting provider): This is a 61yo male with a PMH of HTN, CAD (s/p multiple stents), DM II, HLD who presents with chest tightness and elevated BP since early this morning. Patient went to bed in his normal state of health and woke up at 3am feeling anxious with associated chest tightness by his sternal notch. No radiation down arms or to jaw. No alleviating or exacerbating factors. Took his BP at home and noticed it was elevated. Chest tightness continued until 4am when he made the decision to come to the ER. Was seen in the ER last week for angioedema, at which point patient's lisinopril was stopped. Has a significant history of CAD, having had 7 stents placed in the past. The last stent placed was in 2002. Denies experiencing any significant episodes of CP since then. Stress echo in August 2016 was negative for inducible ischemia. Follows with LAUREN Murray. Of note, has been under an increased amount of stress lately due to caring for a sick family member. Currently denies any headache, lightheadedness, visual changes, CP, SOB, nausea, vomiting, abd pain, calf pain or LE swelling. Past Medical/Surgical History Medical Problems: (1) Diabetes mellitus, type II Status: Chronic (2) Fatty infiltration of liver Status: Chronic (3) GERD (gastroesophageal reflux disease) Status: Chronic (4) Heart disease Status: Resolved (5) HLD (hyperlipidemia) Status: Chronic (6) HTN (hypertension) Status: Chronic (7) Obesity, morbid, BMI 40.0-49.9 Status: Chronic Social History Problems: (1) Diabetes Status: Chronic Family History Diabetes mellitus Heart disease Hypertension Social History Smoking Status: Former Smoker Alcohol Use: occasionally Marital Status: Occupational Status: retired Allergies Coded Allergies: No Known Allergies (Unverified , 11/18/16) Home Medications Scheduled Aspirin (Aspirin Ec), 81 MG PO DAILY Atorvastatin (Lipitor), 40 MG PO DAILY Glipizide (Glucotrol), 5 MG PO BID Losartan Potassium (Cozaar), 25 MG PO DAILY Metformin Hcl (Glucophage), 850 MG PO TID Omeprazole (Prilosec), 20 MG PO DAILY Review of Systems Ten systems reviewed and negative except as noted in the HPI. Physical Ex - H&P Physical Exam Vital Signs Date Time Temp Pulse Resp B/P (MAP) Pulse Ox O2 Delivery O2 Flow Rate FiO2 11/25/16 12:13 36.9 97 18 161/132 94 Room Air 11/25/16 11:55 94 Room Air 11/25/16 11:02 90 18 190/140 94 Room Air 11/25/16 10:36 76 162/112 11/25/16 10:14 85 20 202/125 11/25/16 09:30 76 11/25/16 09:25 86 182/125 93 Room Air 11/25/16 07:32 80 20 168/127 94 Room Air 11/25/16 06:00 92 21 176/116 93 Room Air 11/25/16 05:13 68 11/25/16 04:51 94 Room Air 11/25/16 04:47 94 Room Air 11/25/16 04:24 36.8 74 20 186/109 93 Room Air General Appearance: + mild distress, + obese Head: normocephalic Eyes: normal inspection, PERRL, sclerae normal ENT: hearing grossly normal Neck: supple, no adenopathy, thyroid normal, no JVD, trachea midline Respiratory/Chest: chest non-tender, lungs clear, normal breath sounds, no respiratory distress, no accessory muscle use Cardiovascular: regular rate, rhythm, no murmur, normal peripheral pulses Abdomen/GI: normal bowel sounds, non tender, soft (protuberant ), no organomegaly Back: normal inspection Extremities/Musculoskelatal: normal inspection, no calf tenderness, normal capillary refill, + swelling (1+ pitting edema bilaterally to knee), + pertinent finding (Presence of a healing 2cm wound on R anterior munguia ) Neurologic/Psych: no motor/sensory deficits, alert, normal mood/affect, oriented x 3 Skin: normal color, warm/dry, no rash Diagnostics - H&P Diagnostics Laboratory Results Results Past 24 Hours Test 11/25/16 04:43 11/25/16 09:22 11/25/16 11:50 Range/Units White Blood Count 7.55 4.8-10.8 K/uL Red Blood Count 4.93 4.7-6.1 M/uL Hemoglobin 13.9 14.0-18.0 g/dL Hematocrit 44.3 42-52 % Mean Corpuscular Volume 89.9 80-100 fL Mean Corpuscular Hemoglobin 28.2 25-34 pg Mean Corpuscular Hemoglobin Concent 31.4 32-36 g/dl Platelet Count 288 130-400 K/uL Mean Platelet Volume 9.6 7.4-10.4 fL Neutrophils (%) (Auto) 52.9 % Lymphocytes (%) (Auto) 28.9 % Monocytes (%) (Auto) 9.8 % Eosinophils (%) (Auto) 7.3 % Basophils (%) (Auto) 0.7 % Neutrophils # (Auto) 4.00 1.4-6.5 K/uL Lymphocytes # (Auto) 2.18 1.2-3.4 K/uL Monocytes # (Auto) 0.74 0.11-0.59 K/uL Eosinophils # (Auto) 0.55 0-0.5 K/uL Basophils # (Auto) 0.05 0-0.2 K/uL RDW Standard Deviation 45.4 36.4-46.3 fL RDW Coefficient of Variation 13.9 11.5-14.5 % Immature Granulocyte % (Auto) 0.4 % Immature Granulocyte # (Auto) 0.03 0.00-0.02 K/uL D-Dimer 400 0-500 ug/L FEU Sodium Level 140 136-145 mmol/L Potassium Level 4.1 3.5-5.1 mmol/L Chloride Level 105 98-107 mmol/L Carbon Dioxide Level 29 21-32 mmol/L Anion Gap 6.0 3-11 mmol/L Blood Urea Nitrogen 20 7-18 mg/dl Creatinine 1.10 0.60-1.40 mg/dl Est Creatinine Clear Calc Drug Dose 102.6 ml/min Estimated GFR () 84.1 Estimated GFR (Non- 72.6 BUN/Creatinine Ratio 17.8 10-20 Random Glucose 136 70-99 mg/dl Calcium Level 8.8 8.5-10.1 mg/dl Total Bilirubin 0.3 0.2-1 mg/dl Direct Bilirubin < 0.1 0-0.2 mg/dl Aspartate Amino Transf (AST/SGOT) 27 15-37 U/L Alanine Aminotransferase (ALT/SGPT) 57 12-78 U/L Alkaline Phosphatase 67 45-117 U/L Troponin I < 0.015 0-0.045 ng/ml Pro-B-Type Natriuretic Peptide 32 0-900 pg/ml Total Protein 7.5 6.4-8.2 gm/dl Albumin 3.5 3.4-5.0 gm/dl Lipase 99 73-393 U/L Bedside Troponin I < 0.030 0-0.045 ng/ml Creatine Kinase MB Ratio 0-3.0 CXR normal Normal EKG Impression - H&P Impression Assessment and Plan This is a 61yo male with a PMH of HTN, CAD (s/p multiple stents), DM II, HLD who presents with chest tightness and elevated BP since early this morning. Hypertensive urgency: improving -likely secondary to Anxiety -BP elevated to 202/125 while in ER -No evidence of end organ damage -Given hydralazine, amlodipine but still elevated to SBP of 190 -Added 0.5" nitro paste Q6H PRN for SBP >160 -Monitor on tele Chest pressure: -Denies alma CP, endorses pressure -R/o ACS; risk factors include DM II, HTN, HLD, obesity -Anxiety also a likely contributor -Given aspirin in ER -Initial troponin negative ,will cycle Lopez -EKG and CXR normal -Recent stress echo in August 2016 without inducible ischemia -LV EF of 55-59% DM II: -Hgb a1c of 7.1 on 07/21 -Hgb a1c ordered -Hold home meds -SSI while in-patient -BG checks AC HS CAD (s/p multiple stents): -Denies alma chest pain, endorses pressure -S/p 7 stents. Last cardiac cath in 2002 -Continue statin, baby aspirin -Cardiology HLD: -Continue statin DVT Ppx: Lovenox Code status: FULL PCP: Alfredo Dispo: Plan to return home once medically stable Attending Addendum:: The patient was seen and examined in ER Admitted with ,anxiety,chest pressure and very high Blood pressure Denies any chest pain during my exam O/E Hemodynamically stable Chest-clear Heart-regular Abdomen-benign Extremities-negative Labs and Imaging studies were reviewed Agree with the Assessment and plan DR Marion Narayan Level of Care Telemetry Advanced Directives Existing Living Will: No Existing Power of Janitorial Tech: No Resuscitation Status FULL RESUSCITATION VTE Prophylaxis VTE Risk Assessment Done? Y/N: Yes Risk Level: Moderate Given or contraindicated: Enoxaparin (Lovenox)SQ Social Service Consult None Apply Physical Exam (per Admitting): General Appearance: + mild distress, + obese Head: normocephalic Eyes: normal inspection, PERRL, sclerae normal ENT: hearing grossly normal Neck: supple, no adenopathy, thyroid normal, no JVD, trachea midline Respiratory/Chest: chest non-tender, lungs clear, normal breath sounds, no respiratory distress, no accessory muscle use Cardiovascular: regular rate, rhythm, no murmur, normal peripheral pulses Abdomen/GI: normal bowel sounds, non tender, soft (protuberant ), no organomegaly Back: normal inspection Extremities/Musculoskelatal: normal inspection, no calf tenderness, normal capillary refill, + swelling (1+ pitting edema bilaterally to knee), + pertinent finding (Presence of a healing 2cm wound on R anterior munguia ) Neurologic/Psych: no motor/sensory deficits, alert, normal mood/affect, oriented x 3 Skin: normal color, warm/dry, no rash Hospital Course Attending Addendum; The patient was seen and examined He denies any symptoms today and feeling a lot better His blood pressure is improving on current medications O/E:He is not having any distress and hemodynamically stable His Labs and Imaging studies are unremarkable Repeat ECHO::. There is mild concentric left ventricular hypertrophy. * No regional wall motion abnormalities noted. * The LV Ejection Fraction = 60-65%. * The right ventricle is normal in size and function. * There is mild tricuspid regurgitation. * The calculated pulmonary artery systolic pressure is upper limit of normal to midly elevated at 38 mm Hg, assuming a right atrial pressure of 3 mm Hg. * Grade I diastolic dysfunction, (abnormal relaxation pattern). Agree with the assessment and plan. DR Marion Narayan Total time spent on discharge = 35 minutes This includes examination of the patient, discharge planning, medication reconciliation, and communication with other providers. Discharge Instructions Date of Service Nov 26, 2016. Admission Reason for Admission: Chest Pain Discharge Discharge Diagnosis / Problem: Hypertensive Urgency,Chest pain/Pressure Discharge Goals Goal(s): Prevent Disease Progression Activity Recommendations Activity Limitations: resume your previous activity . Instructions / Follow-Up Instructions / Follow-Up DR Fuentes on 12/03/16 at 10:30AM.Pl keep appointmrnt with Cardiology Current Hospital Diet Patient's current hospital diet: Low Sodium Diet (2gm Na), Diabetes Type 2 Diet Discharge Diet Recommended Diet: AHA Diet (Heart Healthy), Low Sodium Diet (2gm Na) Pending Studies Studies pending at discharge: no Laboratory Results Hemoglobin A1c Test 11/26/16 05:23 Range/Units Estimated Average Glucose 171 mg/dl Hemoglobin A1c 7.6 H 4.5-5.6 % Medical Emergencies . Who to Call and When: Medical Emergencies: If at any time you feel your situation is an emergency, please call 911 immediately. . Non-Emergent Contact Non-Emergency issues call your: Primary Care Provider . Past History Medical & Surgical History: (1) Hypertensive urgency (2) Chest pain (3) Diabetes mellitus, type II (4) Obesity, morbid, BMI 40.0-49.9 (5) Fatty infiltration of liver . "Provider Documentation" section prepared by Danisha Narayan. . VTE Core Measure Inpt VTE Proph given/why not?: Enoxaparin (Lovenox)SQ <Electronically signed by Danisha Narayan M.D.> Signed: 11/26/16 9158 Additional Copies To Anirudh Fuentes D.O.
== END 2016-11-26 14:46 | disposition home or self-care (01) ==
LOC: C.EDB 04:18 → C.MED 11:04 → ENRESERV 11:42
PROVIDERS: ADMIT Internal Medicine; ATTEND Internal Medicine
DX: I16.0 Hypertensive urgency (principal); I10 Essential (primary) hypertension; I25.10 Atherosclerotic heart disease of native coronary artery without angina pectoris; E11.9 Type 2 diabetes mellitus without complications; E78.5 Hyperlipidemia, unspecified; E66.01 Morbid (severe) obesity due to excess calories; Z87.891 Personal history of nicotine dependence; Z79.82 Long term (current) use of aspirin; Z82.49 Family history of ischemic heart disease and other diseases of the circulatory system; Z83.3 Family history of diabetes mellitus; Z68.41 Body mass index [BMI] 40.0-44.9, adult; K21.9 Gastro-esophageal reflux disease without esophagitis

== ENCOUNTER 2017-05-08 08:31 | Emergency (ER) | payer OTHER ==
[~2017-05-08] VITALS: Ht 170.2 cm; Wt 140.3 kg
[~2017-05-08 08:31] MED LIST changes: -AMLO5CAP2 PO; +CRG3125 PO; +NRV5 PO
[2017-05-08 08:35] VITALS: TEMP 36.6; Ht 170.2 cm; Wt 140.3 kg
[2017-05-08 08:53] VITALS: O2SAT 93
[2017-05-08] MEDS ORDERED: ASPIRIN 81 MG CHEW PO STA (09:31)
--- NOTE | 2017-05-08 09:38 | EMERGENCY ROOM VISIT NOTE ---
History Report prepared by Prettyibe: Luz Cotto Under the Supervision of: Dr. Soco Monson M.D. First contact with patient: 08:57 Chief Complaint: HYPERTENSION Stated Complaint: HIGH BLOOD PRESSURE AROUNG 156/117 History of Present Illness The patient is a 62 year old male who presents to the Emergency Room with complaints of persistent hypertension since this morning. He reports he checked his blood pressure at home and it was elevated at 154/115. He took his normal hypertension medications thinking it would drop, but it hasn't. He admits he did eat [place]ali food for lunch and ham last night for dinner. The patient also complains of a headache that feels like "pressure" in the back of his head. He denies any chest pain or shortness of breath. Source of History: patient Onset: earlier this morning Position: other (global) Timing: other (persistent) Modifying Factors (Relieving): other (hypertension medications) Associated Symptoms: + headache, No chest pain, No SOB Review of Systems See HPI for pertinent positives & negatives. A total of 10 systems reviewed and were otherwise negative. Past Medical & Surgical Medical Problems: (1) Diabetes mellitus, type II (2) Fatty infiltration of liver (3) GERD (gastroesophageal reflux disease) (4) Heart disease (5) HLD (hyperlipidemia) (6) HTN (hypertension) (7) Obesity, morbid, BMI 40.0-49.9 Social History Problems: (1) Diabetes Family History Diabetes mellitus Heart disease Hypertension Social History Smoking Status: Former Smoker Alcohol Use: none Marital Status: Housing Status: lives with family Occupation Status: retired Current/Historical Medications Scheduled Amlodipine (Norvasc), 5 MG PO QAM Aspirin (Aspirin Ec), 81 MG PO QAM Atorvastatin (Lipitor), 40 MG PO HS Carvedilol (Coreg), 6.25 MG PO BID Chlorthalidone (Hygroton), 0.5 TAB PO DAILY Glipizide (Glucotrol), 0.5 MG PO BID Metformin Hcl (Glucophage), 850 MG PO TID Omeprazole (Prilosec), 20 MG PO QAM Allergies Coded Allergies: No Known Allergies (Unverified , 05/08/17) Physical Exam Vital Signs Date Time Temp Pulse Resp B/P (MAP) Pulse Ox O2 Delivery O2 Flow Rate FiO2 05/08/17 11:48 70 20 158/108 96 05/08/17 10:41 70 16 162/108 93 Room Air 05/08/17 09:43 76 18 170/101 91 Room Air 05/08/17 08:57 74 05/08/17 08:53 93 Room Air 05/08/17 08:35 36.6 74 18 207/118 94 Room Air Physical Exam Vital signs reviewed. Noted to be hypertensive General: Morbidly obese, chronically ill-appearing 62 year old male, in no significant distress. HEENT: No scleral icterus, PERRLA, neck supple. Atraumatic. Cardiovascular: Regular rate and rhythm, no extra sounds. Pulmonary: Clear to auscultation bilaterally, normal work of breathing. Abdomen: Soft, nontender, nondistended, positive bowel sounds. Musculoskeletal: Atraumatic, no peripheral edema. Neurologic: Patient awake alert and oriented x 3 Skin: Warm, dry, no rash Medical Decision & Procedures ER Provider Diagnostic Interpretation: Radiology results as stated below per my review and radiologist interpretation: SINGLE VIEW CHEST CLINICAL HISTORY: Atypical chest pain. FINDINGS: An AP, portable, upright chest radiograph is compared to study dated 11/25/2016. The examination is degraded by portable technique and apical lordotic positioning. The heart is enlarged. The pulmonary vasculature is noncongested. The lungs and pleural spaces are clear. No pneumothorax is seen. The bony thorax is grossly intact. Degenerative change is noted throughout the thoracic spine. IMPRESSION: Cardiac enlargement with no acute cardiopulmonary abnormality. Electronically signed by: Jarred Hicks M.D. 05/08/2017 9:45 AM Laboratory Results 05/08/17 08:50 Red Blood Count 4.97, Mean Corpuscular Volume 87.1, Mean Corpuscular Hemoglobin 29.2, Mean Corpuscular Hemoglobin Concent 33.5, Mean Platelet Volume 9.8, Neutrophils (%) (Auto) 62.7, Lymphocytes (%) (Auto) 19.5, Monocytes (%) (Auto) 6.7, Eosinophils (%) (Auto) 10.2, Basophils (%) (Auto) 0.6, Neutrophils # (Auto ) 4.50, Lymphocytes # (Auto) 1.40, Monocytes # (Auto) 0.48, Eosinophils # (Auto ) 0.73, Basophils # (Auto) 0.04 05/08/17 08:50 Test 05/08/17 08:50 3/4/18 09:55 05/08/17 10:35 White Blood Count 7.17 K/uL (4.8-10.8) Red Blood Count 4.97 M/uL (4.7-6.1) Hemoglobin 14.5 g/dL (14.0-18.0) Hematocrit 43.3 % (42-52) Mean Corpuscular Volume 87.1 fL (80-100) Mean Corpuscular Hemoglobin 29.2 pg (25-34) Mean Corpuscular Hemoglobin Concent 33.5 g/dl (32-36) Platelet Count 270 K/uL (130-400) Mean Platelet Volume 9.8 fL (7.4-10.4) Neutrophils (%) (Auto) 62.7 % Lymphocytes (%) (Auto) 19.5 % Monocytes (%) (Auto) 6.7 % Eosinophils (%) (Auto) 10.2 % Basophils (%) (Auto) 0.6 % Neutrophils # (Auto) 4.50 K/uL (1.4-6.5) Lymphocytes # (Auto) 1.40 K/uL (1.2-3.4) Monocytes # (Auto) 0.48 K/uL (0.11-0.59) Eosinophils # (Auto) 0.73 K/uL (0-0.5) Basophils # (Auto) 0.04 K/uL (0-0.2) RDW Standard Deviation 45.2 fL (36.4-46.3) RDW Coefficient of Variation 14.2 % (11.5-14.5) Immature Granulocyte % (Auto) 0.3 % Immature Granulocyte # (Auto) 0.02 K/uL (0.00-0.02) Anion Gap 7.0 mmol/L (3-11) Est Creatinine Clear Calc Drug Dose 84.8 ml/min Estimated GFR () 72.3 Estimated GFR (Non- 62.4 BUN/Creatinine Ratio 11.5 (10-20) Calcium Level 9.2 mg/dl (8.5-10.1) Magnesium Level 1.8 mg/dl (1.8-2.4) Total Bilirubin 0.3 mg/dl (0.2-1) Direct Bilirubin 0.1 mg/dl (0-0.2) Aspartate Amino Transf (AST/SGOT) 25 U/L (15-37) Alanine Aminotransferase (ALT/SGPT) 50 U/L (12-78) Alkaline Phosphatase 69 U/L (45-117) Total Protein 7.9 gm/dl (6.4-8.2) Albumin 3.6 gm/dl (3.4-5.0) Urine Color YELLOW Urine Appearance CLEAR (CLEAR) Urine pH 8.0 (4.5-7.5) Urine Specific [place] 1.009 (1.000-1.030) Urine Protein NEG (NEG) Urine Glucose (UA) 2+ (NEG) Urine Ketones NEG (NEG) Urine Occult Blood NEG (NEG) Urine Nitrite NEG (NEG) Urine Bilirubin NEG (NEG) Urine Urobilinogen NEG (NEG) Urine Leukocyte Esterase NEG (NEG) Bedside Troponin I < 0.030 ng/ml (0-0.045) Laboratory results per my review. Medications Administered Medications (Trade) Dose Ordered Sig/Gregoria Route Start Time Stop Time Status Last Admin Dose Admin Aspirin (Aspirin Chew) 324 mg NOW STAT PO 05/08/17 09:31 05/08/17 09:33 DC 05/08/17 09:53 243 MG Chlorthalidone (Hygroton Tab) 12.5 mg NOW STAT PO 05/08/17 10:14 05/08/17 10:16 DC 05/08/17 10:41 12.5 MG ECG Per My Interpretation Indication: other (hypertension) Rate (beats per minute): 76 Rhythm: normal sinus Findings: no acute ischemic change, no ectopy Change: Patient's electrocardiogram interpreted by me. ED Course 09: Aspirin 324 mg PO. 36: Past medical records reviewed. The patient was evaluated in room B10. A complete history and physical examination was performed. 1014: Hygroton 12.5 mg PO. 1150: I reevaluated the patient. He is resting comfortably. I discussed his results and discharge instructions and he verbalized complete understanding and agreement. Medical Decision Differential diagnosis: Etiologies such as benign hypertension, hypertensive emergency, cardiovascular pathology, pheochromocytoma, electrolyte abnormality, renal disease, endorgan damage, as well as others were entertained. This patient was evaluated and appeared to be in no significant distress. Physical examination reveals a morbidly obese gentleman with vague symptoms possibly related to hypertension. Patient's evaluation is unrevealing. Chest x -ray is significant for cardiomegaly without evidence of CHF or focal lung consolidation. EKG reveals no evidence of acute ischemic change. Laboratory work reveals 2 sets of negative cardiac enzymes and a relatively normal renal function. Patient is mildly hyperglycemic. Patient states he is compliant with his medications however it seems that he has had some dietary indiscretions the last 24 hours. The patient has had some recurrent episodes of hypertension that I suspect are related to a high sodium load. The patient was started on a chlorthalidone 12.5 mg daily. He was advised that his physician may want to change this medication later this week. He agreed to follow-up with Dr. Fuentes for reevaluation within the next several days. Meanwhile the patient will maintain a low-sodium diet. He will return to the ER for worsening of symptoms or any medical concerns. Medication Reconcilliation Current Medication List: was personally reviewed by me Blood Pressure Screening Patient's blood pressure: Elevated blood pressure Blood pressure disposition: Referred to PCP Impression Primary Impression: Hypertension Additional Impression: Hyperglycemia Scribe Attestation The scribe's documentation has been prepared under my direction and personally reviewed by me in its entirety. I confirm that the note above accurately reflects all work, treatment, procedures, and medical decision making performed by me. Departure Information Dispostion Home / Self-Care Prescriptions Chlorthalidone (HYGROTON) 25 Mg Tab 0.5 TAB PO DAILY for 30 Days, #15 TAB 0 Refills Prov: Soco Monson M.D. 05/08/17 Referrals Anirudh Fuentes, DJadenOJaden (PCP) Patient Instructions My [facility] Additional Instructions Diagnosis: Hypertension Please maintain a low-sodium diet, less than 2 g of salt daily. Continue your medications as prescribed. Again chlorthalidone 12.5 mg daily. Please follow-up with your primary care physician within the next week for blood pressure recheck. You may require repeat laboratory work at that time. Return to the emergency department for worsening of symptoms or any medical concerns. Problem Qualifiers
[2017-05-08] MEDS ORDERED: CARV6.252 PO (09:42)
[2017-05-08] MEDS ORDERED: AMLO-110 PO (09:42)
--- NOTE | 2017-05-08 09:47 | DIAGNOSTIC IMAGING REPORT ---
SINGLE VIEW CHEST CLINICAL HISTORY: Atypical chest pain. FINDINGS: An AP, portable, upright chest radiograph is compared to study dated 11/25/2016. The examination is degraded by portable technique and apical lordotic positioning. The heart is enlarged. The pulmonary vasculature is noncongested. The lungs and pleural spaces are clear. No pneumothorax is seen. The bony thorax is grossly intact. Degenerative change is noted throughout the thoracic spine. IMPRESSION: Cardiac enlargement with no acute cardiopulmonary abnormality. Electronically signed by: Jarred Hicks M.D. 05/08/2017 9:45 AM Dictated Date/Time: 05/08/2017 9:44 AM
[2017-05-08 09:50] LABS: BASO % 0.6 %; BASO ABS # 0.04 K/uL (0-0.2); EOS % 10.2 %; EOS ABS # 0.73 K/uL (0-0.5); HEMATOCRIT 43.3 % (42-52); HEMOGLOBIN 14.5 g/dL (14.0-18.0); IG# 0.02 K/uL (0.00-0.02); LYMPH % 19.5 %; MEAN CELL VOLUME 87.1 fL (80-100); MEAN CORPUSCULAR HEMOGLOBIN 29.2 pg (25-34); MEAN CORPUSCULAR HGB CONC 33.5 g/dl (32-36); MEAN PLATELET VOLUME 9.8 fL (7.4-10.4); MONO % 6.7 %; MONO ABS # 0.48 K/uL (0.11-0.59); NEUT % 62.7 %; PLATELET COUNT 270 K/uL (130-400); RED CELL DISTRIBUTION WIDTH CV 14.2 % (11.5-14.5); RED CELL DISTRIBUTION WIDTH SD 45.2 fL (36.4-46.3); WHITE BLOOD COUNT 7.17 K/uL (4.8-10.8)
[2017-05-08 09:59] LABS: ALBUMIN 3.6 gm/dl (3.4-5.0); CALCIUM 9.2 mg/dl (8.5-10.1); CREATININE 1.24 mg/dl (0.60-1.40); POTASSIUM 4.1 mmol/L (3.5-5.1)
[2017-05-08 10:02] LABS: TOTAL PROTEIN 7.9 gm/dl (6.4-8.2)
[2017-05-08] MEDS ORDERED: CHLORTHALIDONE 25 MG TAB PO STA (10:14)
[2017-05-08] MEDS ORDERED: HYG/25 PO (11:32)
[2017-05-08 11:48] VITALS: BP 158/108; PULSE 70; O2SAT 96
== END 2017-05-08 11:50 | disposition home or self-care (01) ==
LOC: C.EDB 08:33
DX: I11.9 Hypertensive heart disease without heart failure (principal); E11.65 Type 2 diabetes mellitus with hyperglycemia; K21.9 Gastro-esophageal reflux disease without esophagitis; Z87.891 Personal history of nicotine dependence; Z79.82 Long term (current) use of aspirin; Z79.84 Long term (current) use of oral hypoglycemic drugs; Z83.3 Family history of diabetes mellitus; Z82.49 Family history of ischemic heart disease and other diseases of the circulatory system

== ENCOUNTER 2017-05-27 18:15 | Emergency (ER) | payer OTHER ==
[~2017-05-27] VITALS: Ht 180.3 cm; Wt 138.0 kg
[~2017-05-27 18:15] MED LIST changes: +AMLO-110 PO; +CARV6.252 PO; -CRG3125 PO; +HYG/25 PO; -NRV5 PO
[2017-05-27 18:17] VITALS: TEMP 36.7; Ht 180.3 cm; Wt 138.0 kg
--- NOTE | 2017-05-27 19:10 | DIAGNOSTIC IMAGING REPORT ---
R KNEE 3 VIEWS CLINICAL HISTORY: 62 years-old Male presenting with RIGHT, PAIN AND SWELLING. TECHNIQUE: Frontal, lateral, and sunrise views of the right knee were obtained. COMPARISON: None. FINDINGS: Joint spaces preserved. Minimal osteophytosis noted in all 3 compartments. Small knee joint effusion. No acute fracture or malalignment. Atherosclerosis. IMPRESSION: 1. No acute osseous injury. 2. Mild tricompartmental degenerative changes. 3. Small knee joint effusion. Electronically signed by: Xu Nicholson M.D. 05/27/2017 7:09 PM Dictated Date/Time: 05/27/2017 7:08 PM
--- NOTE | 2017-05-27 19:30 | EMERGENCY ROOM VISIT NOTE ---
ED Visit Note First contact with patient: 18:27 I did evaluate and examine this patient myself. I did guide management for the patient. I agree with the PA's assessment as discussed. Please see the PAs dictation for further details. I did independently review the x-rays and Doppler ultrasound of the right leg.
--- NOTE | 2017-05-27 20:17 | DIAGNOSTIC IMAGING REPORT ---
R VENOUS DOPP LOWER EXT UNILAT CLINICAL HISTORY: 62 years-old Male presenting with PAIN BEHIND RIGHT KNEE. TECHNIQUE: Real-time grayscale and color and spectral Doppler ultrasound imaging of the veins of the right lower extremity was performed. Compression and augmentation were also utilized. COMPARISON: None. FINDINGS: Right: Common femoral vein: Patent. Greater saphenous vein: Patent. Deep femoral vein: Patent. Femoral vein: Patent. Popliteal vein: Patent. Calf veins: Limited visualization. Other: None. IMPRESSION: No evidence of deep venous thrombosis. Electronically signed by: Xu Nicholson M.D. 05/27/2017 8:15 PM Dictated Date/Time: 05/27/2017 8:15 PM
[2017-05-27] MEDS ORDERED: OXYC1TAB3 PO (20:22)
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
[2017-05-27] MEDS ORDERED: OXYCODONE IR HOME PACK PO ONE (20:30)
[2017-05-27 20:39] VITALS: BP 179/93; PULSE 79; O2SAT 96
== END 2017-05-27 20:46 | disposition home or self-care (01) ==
LOC: C.EDB 18:17 → C.EDD 20:46
DX: M25.561 Pain in right knee (principal); M25.461 Effusion, right knee; E11.9 Type 2 diabetes mellitus without complications; I10 Essential (primary) hypertension; E78.5 Hyperlipidemia, unspecified; E66.3 Overweight; M10.9 Gout, unspecified; K76.0 Fatty (change of) liver, not elsewhere classified; K21.9 Gastro-esophageal reflux disease without esophagitis